=== PATIENT | male | born 1960 | race African-American/Black ===

== ENCOUNTER 2016-12-03 22:12 | Inpatient (IN) | payer SELFPAY ==
[~2016-12-03] VITALS: Ht 175.3 cm; Wt 68.0 kg
[~2016-12-03 22:12] MED LIST: ALBU18HF2 IH; ASPI-1159 PO; ATOR40TA70 PO; BECL8.7A6 IH; CLOP75TA33 PO; LISI40TA4 PO; METF10002 PO; METO25TA6 PO
[2016-12-04] MEDS ORDERED: NITROGLYCERIN 0.4MG TABLET SL SL PRN (00:45)
[2016-12-04 01:01] LABS: BASOPHILS % 0.9 % (0.0-2.0); EOSINOPHILS % 1.9 % (0.0-5.0); HEMOGLOBIN. 14.4 g/dL (14.0-18.0); LYMPHOCYTES % 36.6 % (20.0-50.0); MEAN CORPUSCULAR HEMOGLOBIN 31.1 pg (28.0-32.0); MEAN CORPUSCULAR VOLUME 92.7 fL (80.0-94.0); MEAN PLATELET VOLUME 9.8 fl (7.4-10.4); MONOCYTES % 10.5 % (2.0-8.0); NEUTROPHILS % 50.1 % (40.0-76.0); PLATELET 117 x1000/uL (130-400); RED BLOOD CELL COUNT 4.64 mill/uL (4.7-6.1); RED CELL DISTRIBUTION WIDTH 13.4 % (11.6-14.6)
[2016-12-04 01:08] LABS: INR 1.1; PARTIAL THROMBOPLASTIN TIME 28.3 sec (24.0-34.0); PROTHROMBIN TIME 11.4 sec
[2016-12-04 01:19] LABS: CARBON DIOXIDE 26 mEq/L (21-32); CHLORIDE 107 mEq/L (98-107); TROPONIN I < 0.02 ng/mL (0.00-0.04)
[2016-12-04 01:40] LABS: *AMPHETAMINES SCREEN URINE NEGATIVE (NEGATIVE); *BARBITURATES SCREEN URINE NEGATIVE (NEGATIVE); *BENZODIAZEPINES SCREEN URINE NEGATIVE (NEGATIVE); *COCAINE SCREEN URINE NEGATIVE (NEGATIVE); CANNABINOID URINE SCREEN PRESUMTIVE POSITIVE (NEGATIVE); METHADONE URINE SCREEN NEGATIVE (NEGATIVE); OPIATES URINE SCREEN NEGATIVE (NEGATIVE); PHENCYCLIDINE URINE SCREEN NEGATIVE (NEGATIVE)
[2016-12-04 09:30] VITALS: BP 128/72
[2016-12-04] MEDS ORDERED: REGADENOSON 0.4 MG/5 ML IV ONE (10:45)
[2016-12-04] MEDS: CLOPIDOGREL 75MG TABLET PO SCH (11:31)
[2016-12-04] MEDS: ENOXAPARIN 40MG/0.4ML SYR SUBCUT SCH (11:31)
[2016-12-04 11:56] LABS: T4 FREE 1.63 ng/dL (0.76-1.46)
[2016-12-04 12:00] VITALS: BP 132/90
[2016-12-04] MEDS ORDERED: ACETAMINOPHEN 650MG/20.3ML UDC GT PRN (15:45)
[2016-12-04] MEDS ORDERED: CLONIDINE 0.1MG TABLET PO PRN (15:45)
[2016-12-04] MEDS ORDERED: DOCUSATE SODIUM 100MG CAPSULE PO PRN (15:45)
[2016-12-04] MEDS ORDERED: NA PHOS,M-B/NA PHOS,DI-BA ENEMA 118ML PR PRN (15:45)
[2016-12-04] MEDS ORDERED: GUAIFENESIN 200MG/10ML SUGAR FREE UDC PO PRN (15:45)
[2016-12-04] MEDS ORDERED: ACETAMINOPHEN 325MG TABLET PO PRN (15:45)
[2016-12-04] MEDS ORDERED: IPRATROPIUM/ALBUTEROL 0.5-3(2.5)MG/3ML NEB INH PRN (15:45)
[2016-12-04] MEDS ORDERED: ONDANSETRON HCL 4MG/2ML VIAL IV PRN (15:45)
[2016-12-04] MEDS ORDERED: DIPHENHYDRAMINE 50MG/ML VIAL IV PRN (15:45)
[2016-12-04] MEDS ORDERED: MAGNESIUM/ALUMINUM HYDROXIDE/SIMETHICONE 30ML UDC PO PRN (15:45)
[2016-12-04] MEDS ORDERED: ACETAMINOPHEN 650MG SUPP PR PRN (15:45)
[2016-12-04 16:00] VITALS: BP 137/95
[2016-12-04 16:17] LABS: CREATINE KINASE 84 IU/L (39-308); CREATINE KINASE MB FRACTION 1.4 ng/mL (0.5-3.6); TROPONIN I < 0.02 ng/mL (0.00-0.04)
[2016-12-04] MEDS ORDERED: ENOXAPARIN 40MG/0.4ML SYR SUBCUT SCH (17:00)
[2016-12-04 20:03] VITALS: BP 143/90
[2016-12-04] MEDS: SODIUM CHLORIDE 0.9% INJ 3ML FLUSH IVF SCH (20:43)
[2016-12-05 00:25] VITALS: BP 128/82
[2016-12-05] MEDS: HYDROCODONE/ACETAMINOPHEN 5/325MG TABLET PO PRN ×2 (00:28→10:47)
[2016-12-05 01:02] LABS: CREATINE KINASE 74 IU/L (39-308); CREATINE KINASE MB FRACTION 0.7 ng/mL (0.5-3.6); TROPONIN I < 0.02 ng/mL (0.00-0.04)
[2016-12-05 04:00] VITALS: BP 140/78
[2016-12-05] MEDS: SODIUM CHLORIDE 0.9% INJ 3ML FLUSH IVF SCH (06:28)
[2016-12-05 06:45] LABS: BASOPHILS % 0.5 % (0.0-2.0); HEMATOCRIT. 45.9 % (42.0-52.0); HEMOGLOBIN. 15.7 g/dL (14.0-18.0); LYMPHOCYTES % 41.2 % (20.0-50.0); MEAN CORPUSCULAR HEMOGLOBIN 31.9 pg (28.0-32.0); MEAN CORPUSCULAR VOLUME 93.4 fL (80.0-94.0); MEAN PLATELET VOLUME 11.1 fl (7.4-10.4); MONOCYTES % 11.8 % (2.0-8.0); NEUTROPHILS % 44.5 % (40.0-76.0); PLATELET 115 x1000/uL (130-400); RED BLOOD CELL COUNT 4.91 mill/uL (4.7-6.1); RED CELL DISTRIBUTION WIDTH 13.6 % (11.6-14.6)
[2016-12-05 07:19] LABS: CHLORIDE 108 mEq/L (98-107)
[2016-12-05 07:25] LABS: CARBON DIOXIDE 22 mEq/L (21-32); CREATINE KINASE 65 IU/L (39-308); HDL CHOLESTEROL 33 mg/dL (40-59); LDL CHOLESTEROL 82 mg/dL (5-100); TROPONIN I < 0.02 ng/mL (0.00-0.04)
[2016-12-05 08:00] VITALS: BP 132/87
[2016-12-05] MEDS: ENOXAPARIN 40MG/0.4ML SYR SUBCUT SCH (09:00)
[2016-12-05] MEDS: CLOPIDOGREL 75MG TABLET PO SCH (09:00)
[2016-12-05] MEDS ORDERED: ASPIRIN 81MG TABLET PO SCH (09:00)
[2016-12-05] MEDS ORDERED: REGADENOSON 0.4 MG/5 ML IV ONE (09:26)
[2016-12-05 12:00] VITALS: BP 135/79
[2016-12-05 13:52] VITALS: BP 132/66
== END 2016-12-05 14:20 | disposition home or self-care (01) | DRG 198 ==
LOC: ER 22:20 → 5EST 12-04 03:48 → EDBEDREQ 12-04 04:13 → ENRESERV 12-04 07:52
PROVIDERS: ADMIT Family Medicine; ATTEND Family Medicine
DX: R07.89 Other chest pain (principal); I25.2 Old myocardial infarction; I10 Essential (primary) hypertension; E11.9 Type 2 diabetes mellitus without complications; E78.00 Pure hypercholesterolemia, unspecified; E78.5 Hyperlipidemia, unspecified; I25.10 Atherosclerotic heart disease of native coronary artery without angina pectoris; E05.90 Thyrotoxicosis, unspecified without thyrotoxic crisis or storm; F17.210 Nicotine dependence, cigarettes, uncomplicated; Z91.19 Patient's noncompliance with other medical treatment and regimen; Z95.1 Presence of aortocoronary bypass graft
CPT/HCPCS: 36415; 71010; 78452; 80053; 80061; 80305; 82550; 82553; 82962; 83036; 83690; 84439; 84443; 84484; 85025; 85610; 85730; 93005; 93017; 99285; A9500; J1650; J2785